=== PATIENT | female | born 1945 | race Caucasian/White ===

== ENCOUNTER 2024-12-18 08:00 | Day surgery (SDC) | payer MEDICARE ==
[2024-12-15 12:45] LABS: MEAN PLATELET VOLUME 8.3 FL (7.4-10.4); PRE OP HEMATOCRIT 42.7 % (35.0-45.0); PRE OP HEMOGLOBIN 13.8 g/dL (12.0-16.0); PRE OP PLATELET COUNT 305 X10'3 (140-440); PRE OP WHITE BLOOD COUNT 6.2 10'3 (4.8-10.8); RED CELL DISTRIBUTION WIDTH 14.6 % (11.5-14.5)
--- NOTE | 2024-12-15 12:51 | ELECTROCARDIOGRAPH REPORT ---
[facility] Test Date: 2024-12-15 Test Time: 13:48:58 Pat Name: DERRICK SANCHEZ Department: [facility]-PRE-OP Patient ID: [facility]-[id number] Room: Gender: F [employer] Developer: ap : 1945 Requested By: DANY UMANA Order Number: [id number] Reading MD: Dr. YOJANA Caicedo Measurements Intervals [place] Rate: 90 P: 0 ME: 179 QRS: -77 QRSD: 138 T: 157 QT: 350 QTc: 429 Interpretive Statements A-V dual-paced rhythm with some inhibition No further analysis attempted due to paced rhythm Electronically Signed On 12-15-2024 16:53:[address] YOJANA Caicedo Please click the below link to view image of tracing.
[2024-12-15 12:59] LABS: CREATININE 2.28 MG/DL (0.40-0.90); PRE OP ALT 19 U/L (30-65); PRE OP ANION GAP 6 (8-16); PRE OP AST 21 U/L (10-37); PRE OP BILIRUB, TOTAL 0.4 MG/DL (0.0-1.0); PRE OP GLUCOSE 98 MG/DL (70-104); PRE OP POTASSIUM 5.1 MMOL/L (3.4-5.1); PRE OP SODIUM 142 MMOL/L (135-145); TOTAL CARBON DIOXIDE 27.3 MMOL/L (24-32); eGFR 21 ML/MIN
[~2024-12-18] VITALS: Ht 160 cm; Wt 72.3 kg
[2024-12-18] MEDS: ceFAZolin 2gm/dext,iso 50mL 50 ML IV ONE (05:30)
[~2024-12-18 08:00] MED LIST: AMIO200T27 PO; AMLO2.5T4 PO; BUPIVAcaine/PF 2.5mg/ml (0.25%) 10ml vial ONE; CALC0.2536 PO; CARV3.122 PO; CLOP75TA33 PO; DENO60DI SUBCUT; DOCUMENT DATE & TIME OF BETA-BLOCKER PO ONE; DONE-55 PO; FAMO40TA58 PO; IRBE300T26 PO; LIDOcaine 2% (20mg/ml) 5ml vial ONE
[2024-12-18 08:13] VITALS: BP 134/77; PULSE 60; RESP 15; RESP 16; TEMP 97.7; O2SAT 97
[2024-12-18] MEDS ORDERED: fentaNYL/PF 50MCG/1 ML 2ML syringe ONE (09:13)
[2024-12-18] MEDS ORDERED: propofol inj 20 ML IV ONE (09:33)
[2024-12-18 09:36] VITALS: BP 124/72; PULSE 60; RESP 14; O2SAT 100
[2024-12-18 09:45] VITALS: BP 151/79; PULSE 60; RESP 16; O2SAT 99
[2024-12-18 09:55] VITALS: BP 147/81; PULSE 60; RESP 17; O2SAT 97
[2024-12-18 10:05] VITALS: BP 150/80; PULSE 60; RESP 18; O2SAT 96
[2024-12-18 10:15] VITALS: BP 153/74; PULSE 60; RESP 15; O2SAT 95
--- NOTE | 2024-12-18 19:10 | OPERATIVE REPORT ---
Operative Report Providers to ~ Date of Procedure: Dec 18, 2024 Pre-Operative Diagnosis: Dupuytren's contracture right small finger Post-Operative Diagnosis SAME as PRE-Op Procedure Performed Right palm and small finger fasciectomy Surgeon: Evin Welch MD [employer] Director None Anesthesiologist: Yakov Kaiser Type of Anesthesia: Regional Findings: Estimated Blood Loss: None Specimen Removed: None Description of Procedure: The patient is a 79-year-old woman with a Dupuytren's contracture causing contracture of the right small finger and functional impairment. Surgery is indicated to improve function. Risks and benefits were discussed with the patient and she agreed to proceed. She was brought to the operating room where the block was given in the arm was prepped and draped in usual manner. A curved incision was made from the palm in to the small finger past the PIP crease. It was then extended out to the DIPJ crease. The fascia was along the ulnar edge of the digit causing contracture of both PIPJ and DIPJ joint. The neurovascular bundles were identified and protected and the fascia was then excised off of the finger. There was some tightness of the joint so an open window was made between the A2 and A4 pulleys and this relieved the contracture. The incision was irrigated and closed with nylon suture. Sterile dressing was applied along with a splint. The tourniquet was released the hand perfused well. She was taken to the recovery room in stable condition and tolerated the procedure well. EVIN WELCH Jr., MD Dec 18, 2024 19:10
== END 2024-12-18 10:36 | disposition home or self-care (01) ==
LOC: PAS 08:00
PROVIDERS: ATTEND Orthopaedic Surgery Hand Surgery
DX: M72.0 Palmar fascial fibromatosis [Dupuytren] (principal); I12.9 Hypertensive chronic kidney disease with stage 1 through stage 4 chronic kidney disease, or unspecified chronic kidney disease; N18.4 Chronic kidney disease, stage 4 (severe); R73.09 Other abnormal glucose; Z91.041 Radiographic dye allergy status; Z88.8 Allergy status to other drugs, medicaments and biological substances; Z87.891 Personal history of nicotine dependence; Z95.810 Presence of automatic (implantable) cardiac defibrillator
CPT/HCPCS: 26123; 36415; 80053; 82948; 85025; 93005; A4215; A6449; J2003; J2704; J3010; J3490; J7030; J7120; Z7506; Z7512